=== PATIENT | male | born 1940 | race Caucasian/White ===

== ENCOUNTER 2021-02-09 13:00 | Inpatient (IN) | payer MEDICARE, OTHER ==
[~2021-02-09] VITALS: Ht 162.6 cm; Wt 64.4 kg
--- NOTE | 2021-02-09 13:10 | NUR ---
Pt unable to recall name of meds and dosages. Pt called daughter to bring list/bottles.
--- NOTE | 2021-02-09 13:30 | NUR ---
Per Pt's request call placed to his Rx at [facility], message left for pharmesist. Attempted to call to pt's famiy to get the med list, but all the numbers provided by pt not working.
[2021-02-09] MEDS ORDERED: ACETAMINOPHEN 325 MG TABLET PO ONE (13:45)
[2021-02-09] MEDS ORDERED: ACETAMINOPHEN 650 MG/20.3 ML LIQUID UDC PO ONE (13:45)
[2021-02-09] MEDS ORDERED: ACETAMINOPHEN ES 500 MG TABLET ONE (14:09)
[2021-02-09] MEDS ORDERED: ACETAMINOPHEN ES 500 MG TABLET PO ONE (14:15)
--- NOTE | 2021-02-09 14:32 | NUR ---
Patient is back from CT scan in same condition, pending results & disposition.
--- NOTE | 2021-02-09 15:04 | NUR ---
Patient is resting comfortably on gurney with dark eyeglasses on, NAD, pending results and disposition.
--- NOTE | 2021-02-09 16:08 | NUR ---
Patient ambulated to ER hallway with brisk gait & not using his cane. Urinal was offered.
[2021-02-09 17:13] LABS: HEMATOCRIT 43.4 % (36.7-47.1); MEAN CORPUSCULAR HEMOGLOBIN 30.4 uug (23.8-33.4); MEAN CORPUSCULAR VOLUME 89.8 fL (73.0-96.2); PLATELET COUNT (AUTO) 140 K/uL (152-348)
[2021-02-09 17:21] LABS: CARBON DIOXIDE 30 mmol/L (21-32); CHLORIDE 105 mmol/L (98-107); CREATININE 1.2 mg/dL (0.6-1.3); GLUCOSE 97 mg/dL (74-106); POTASSIUM 4.3 mmol/L (3.5-5.1); UREA NITROGEN, BLOOD 20 mg/dL (7-18)
--- NOTE | 2021-02-09 17:29 | NUR ---
RAJESH [email or web address]. Patient will be admitted to telemetry, pending available nurse at this time.
[2021-02-09 17:33] LABS: ALANINE AMINOTRANSFERASE 38 U/L (16-63); ALKALINE PHOSPHATASE 55 U/L (50-136); ASPARTATE AMINOTRANSFERASE 16 U/L (15-37); BILIRUBIN,TOTAL 0.3 mg/dL (0.2-1.0); TOTAL PROTEIN, SERUM 6.8 g/dL (6.4-8.2)
[2021-02-09 17:34] LABS: BILIRUBIN,DIRECT < 0.1 mg/dL (0.0-0.2)
--- NOTE | 2021-02-09 19:03 | NUR ---
Patient is "admitted to TRANSITION UNIT" for medical-surgical floor admission under PRODUCTION SERVICE MANAGER Vasquez, pending available nurse & room in 3rd floor at this time. SBAR to RN Cat. Addendum: 02/09/21 at 1930 by SHERRIE "...TRANSITION UNIT" for medical-surgical vs telemetry admission under PRODUCTION SERVICE MANAGER Vasquez, pending available nurse & room in 3rd floor at this time. SBAR to RN Cat.
[2021-02-09] MEDS ORDERED: IV 1/2NS 1000 ML 1,000 ML IV PRN (19:15)
[2021-02-09] MEDS ORDERED: INSULIN REGULAR, HUMAN 300 UNIT/3 ML VIAL SQ PRN (19:15)
[2021-02-09] MEDS ORDERED: ONDANSETRON 4 MG/2 ML VIAL IV PRN (19:15)
[2021-02-09] MEDS ORDERED: DEXTROSE 50% 50 ML DISP.SYRIN IV PRN (19:15)
[2021-02-09] MEDS ORDERED: Z GUARD REMEDY PASTE 57 GM TUBE TOP PRN (19:15)
[2021-02-09] MEDS ORDERED: MAGNESIUM HYDROXIDE 30 ML LIQUID UDC PO PRN (19:15)
[2021-02-09] MEDS ORDERED: ACETAMINOPHEN 325 MG TABLET PO PRN (19:15)
--- NOTE | 2021-02-09 20:18 | NUR ---
GAVE REPORT TO YOSEF, 3RD FLOOR.
--- NOTE | 2021-02-09 20:43 | NUR ---
ASSISTED PT TO USE URINAL, NOTED WITH CLEAR YELLOW URINE.
[2021-02-09 20:50] LABS: *BILIRUBIN,URIN NEGATIVE (NEGATIVE); *BLOOD, URINE NEGATIVE (NEGATIVE); *CLARITY,URINE CLEAR (CLEAR); *COLOR,URINE YELLOW (YELLOW); *KETONES,URINE NEGATIVE (NEGATIVE); *UROBILINOGEN,URINE 0.2 E.U./dl (NORMAL); LEUKOCYTE ESTERASE ,URINE NEGATIVE (NEGATIVE); NITRITE, URINE NEGATIVE (NEGATIVE); UGLUCOSE 3+ (NEGATIVE)
[2021-02-09] MEDS ORDERED: BLOOD SUGAR DIAGNOSTIC 1 EACH STRIP VI SCH (21:00)
--- NOTE | 2021-02-09 21:00 | NUR ---
Received patient via gurney. Admitted to room 302-telemetry with diagnosis of altered mental status, syncope and mechanical fall. Patient is awake, alert and oriented, however patient is Farsi speaking. Patient voiced that he wants to go home, however, unable to reach family. Established nurse- patient rapport. Oriented patient to room, bed and call light button. IV L FA, intact and patent. On tele monitor, showing sinus rhythm with heart rate of 76 bpm. Safety precautions and comfort measures initiated will continue to monitor.
--- NOTE | 2021-02-09 21:00 | NUR ---
Pt. admitted to TELE ROOM 302 , under care of JAVA LEAD DEVELOPER- LOUIS BRITTON DX: AMS, MECHANICAL FALL UNKNOWN ETIOLOGY. Belongs List completed
[2021-02-09 21:31] VITALS: BP 152/59
--- NOTE | 2021-02-09 22:00 | NUR ---
Patient's daughter called and advised that one of his daughters will visit the patient lisandra.
--- NOTE | 2021-02-09 22:30 | NUR ---
Patient's daughter at bedside, she advised that patient wants to leave against medical advice.
--- NOTE | 2021-02-09 22:50 | NUR ---
Patient refused treatment despite advising him regarding the risks and consequences involved in leaving the hospital against medical advice. Patient and patient's daughter both signed AMA form and patient's belongings list. IV access was removed. Detached patient from cafeteria monitor. Last rhythm noted was sinus rhythm. Patient was able to ambulate towards wheelchair. Patient was escorted down to the lobby together with his daughter. Will advise TANK HOUSE OPERATOR HELPER, Anthony Vasquez accordingly.
[2021-02-10] MEDS ORDERED: PANTOPRAZOLE SODIUM 40 MG TABLET.DR PO SCH (07:00)
== END 2021-02-09 22:45 | disposition left against medical advice (07) | DRG 312 ==
LOC: ER 13:25 → TRANSITION 18:50 → TELE3 20:37
PROVIDERS: ADMIT Nurse Practitioner Family; ATTEND Nurse Practitioner Family
DX: R55 Syncope and collapse (principal); G93.41 Metabolic encephalopathy; E11.9 Type 2 diabetes mellitus without complications; E78.5 Hyperlipidemia, unspecified; I10 Essential (primary) hypertension; N40.0 Benign prostatic hyperplasia without lower urinary tract symptoms; W01.0XXA Fall on same level from slipping, tripping and stumbling without subsequent striking against object, initial encounter; Y93.9 Activity, unspecified; Y92.481 Parking lot as the place of occurrence of the external cause; G30.9 Alzheimer's disease, unspecified; F02.80 Dementia in other diseases classified elsewhere, unspecified severity, without behavioral disturbance, psychotic disturbance, mood disturbance, and anxiety; M25.552 Pain in left hip; Z20.822 Contact with and (suspected) exposure to COVID-19
CPT/HCPCS: 36415; 70030-TC; 70450; 71045; 72125; 73502; 85025; 85730; 87086; 93005; A4663; A9150; G0378; J3490